=== PATIENT | male | born 1960 | race Caucasian/White ===

== ENCOUNTER 2017-04-09 09:42 | Observation (INO) | payer MEDICAID ==
[2017-03-29 08:36] VITALS: BP 143/85
[~2017-04-09] VITALS: Ht 182.9 cm; Wt 84.4 kg
[~2017-04-09 09:42] MED LIST: HYDR-3241 PO; LISI40TA PO; LORA2TAB PO
[2017-04-09] MEDS ORDERED: LACTATED RINGERS 1,000 ML IV SCH ×2 (10:05→19:01)
[2017-04-09] MEDS ORDERED: LIDOCAINE 1%, 2ML SQ PRN (10:30)
[2017-04-09] MEDS ORDERED: BUPIVACAINE/PF-EPI 0.5% 1:200K ONE (12:28)
[2017-04-09] MEDS ORDERED: MIDAZOLAM 1 MG/ML, 2ML ONE (12:40)
[2017-04-09] MEDS ORDERED: FENTANYL PF 250 MCG/5ML ONE (12:40)
[2017-04-09] MEDS ORDERED: KETAMINE 10 MG/ML, 20ML ONE (12:40)
[2017-04-09] MEDS ORDERED: AMPICILLIN 2 GM ONE (12:46)
[2017-04-09] MEDS ORDERED: GENTAMICIN 80 MG/2 ML ONE (12:47)
[2017-04-09] MEDS ORDERED: DEXAMETHASONE 4 MG/ML, 1ML ONE (13:04)
[2017-04-09] MEDS ORDERED: EPHEDRINE 50 MG/ML, 1ML ONE (13:04)
[2017-04-09] MEDS ORDERED: ONDANSETRON 2MG/ML, 2ML ONE (13:04)
[2017-04-09] MEDS ORDERED: SUCCINYLCHOLINE 20 MG/ML, 10ML ONE (13:04)
[2017-04-09] MEDS ORDERED: PROPOFOL 10 MG/ML, 20ML ONE (13:04)
[2017-04-09] MEDS ORDERED: PROPOFOL 10 MG/ML, 50ML ONE (13:04)
[2017-04-09] MEDS ORDERED: FENTANYL PF 100 MCG/2ML ONE ×2 (14:01→17:08)
[2017-04-09] MEDS ORDERED: HYDROmorphone 1 MG/ML, 1ML ONE (14:01)
[2017-04-09] MEDS ORDERED: ACETAMINOPHEN 325 MG TABLET PO PRN (14:30)
[2017-04-09] MEDS ORDERED: PROMETHAZINE 25 MG/ML, 1ML IV PRN (14:30)
[2017-04-09] MEDS ORDERED: hydrALAzine 20 MG/ML, 1ML IV PRN (14:30)
[2017-04-09] MEDS ORDERED: ALBUTEROL/IPRATROPIUM 2.5MG/0.5MG, 3 ML NPPB PRN (14:30)
[2017-04-09] MEDS ORDERED: ONDANSETRON 2MG/ML, 2ML IVPush PRN ×2 (14:30→19:30)
[2017-04-09] MEDS ORDERED: MEPERIDINE/PF 25MG/0.5ML IVPush PRN (14:30)
[2017-04-09] MEDS ORDERED: MIDAZOLAM 1 MG/ML, 2ML IV PRN (14:30)
[2017-04-09] MEDS ORDERED: OXYcodone 5 MG/5 ML ORAL.SOL UDC PO PRN (14:30)
[2017-04-09] MEDS ORDERED: LABETALOL 5MG/ML, 20ML IV PRN (14:30)
[2017-04-09] MEDS: FENTANYL PF 100 MCG/2ML IV PRN ×2 (17:05→17:25)
[2017-04-09] MEDS ORDERED: OXYcodone 5 MG/5 ML ORAL.SOL UDC ONE (17:08)
[2017-04-09] MEDS ORDERED: ACETAMINOPHEN 650 MG/20.3 ML UDC ONE (17:08)
[2017-04-09] MEDS ORDERED: HYDROmorphone 2 MG/ML, 1ML ONE (17:08)
[2017-04-09] MEDS: HYDROmorphone 1 MG/ML, 1ML IV PRN ×5 (17:10→18:00)
[2017-04-09 19:00] VITALS: BP 129/83
[2017-04-09] MEDS: morphine SULFATE 10 MG/ML, 1ML IVPush PRN ×2 (20:20→23:15)
[2017-04-09] MEDS: OXYcodone IR 5MG TABLET PO PRN ×2 (21:39→23:15)
[2017-04-09] MEDS: AMPICILLIN 1 GM in SODIUM CHLORIDE 0.9% 50 ML IV SCH (21:40)
[2017-04-09] MEDS: ACETAMINOPHEN 500 MG TABLET PO PRN (23:15)
[2017-04-09] MEDS: LORazepam 1MG TABLET PO PRN (23:15)
[2017-04-09] MEDS: DOCUSATE 100 MG CAPSULE PO SCH (23:26)
[2017-04-09] MEDS: PROMETHAZINE 25 MG/ML, 1ML IM PRN (23:27)
[2017-04-09 23:56] VITALS: BP 147/88
[2017-04-10] MEDS: OXYcodone IR 5MG TABLET PO PRN ×5 (03:25→19:54)
[2017-04-10] MEDS: AMPICILLIN 1 GM in SODIUM CHLORIDE 0.9% 50 ML IV SCH ×2 (03:25→11:52)
[2017-04-10] MEDS: morphine SULFATE 10 MG/ML, 1ML IVPush PRN ×7 (03:26→22:57)
[2017-04-10 04:25] VITALS: BP 122/77
[2017-04-10] MEDS: ACETAMINOPHEN 500 MG TABLET PO PRN ×3 (05:14→19:54)
[2017-04-10] MEDS: LACTATED RINGERS 1,000 ML IV SCH ×2 (06:01→13:48)
[2017-04-10 06:19] LABS: BLOOD UREA NITROGEN 12 mg/dL (7-18)
[2017-04-10] MEDS: LISINOPRIL 20 MG TABLET PO SCH (08:04)
[2017-04-10] MEDS: DOCUSATE 100 MG CAPSULE PO SCH ×2 (08:04→19:55)
[2017-04-10 08:51] VITALS: BP 129/81
[2017-04-10 14:08] VITALS: BP 107/86
[2017-04-10] MEDS: AMOXICILLIN/CLAV 875-125MG TABLET PO SCH (19:54)
[2017-04-10] MEDS: LORazepam 1MG TABLET PO PRN (19:54)
[2017-04-10 20:06] VITALS: BP 144/81
[2017-04-11] MEDS: OXYcodone IR 5MG TABLET PO PRN ×4 (01:25→13:59)
[2017-04-11 01:32] VITALS: BP 116/71
[2017-04-11] MEDS: ACETAMINOPHEN 500 MG TABLET PO PRN ×2 (01:57→08:11)
[2017-04-11] MEDS: morphine SULFATE 10 MG/ML, 1ML IVPush PRN ×3 (01:57→09:02)
[2017-04-11] MEDS: LACTATED RINGERS 1,000 ML IV SCH ×2 (02:09→09:02)
[2017-04-11] MEDS: PROMETHAZINE 25 MG/ML, 1ML IM PRN (02:09)
[2017-04-11 08:02] VITALS: BP 145/76
[2017-04-11] MEDS: AMOXICILLIN/CLAV 875-125MG TABLET PO SCH (08:11)
[2017-04-11] MEDS: LISINOPRIL 20 MG TABLET PO SCH (08:12)
[2017-04-11] MEDS: LORazepam 1MG TABLET PO PRN (08:18)
[2017-04-11] MEDS: DOCUSATE 100 MG CAPSULE PO SCH (09:02)
[2017-04-11 13:42] VITALS: BP 145/76
[2017-04-11] MEDS ORDERED: NITR100C56 PO (14:18)
[2017-04-11] MEDS ORDERED: OXYC-302 PO (14:21)
[2017-04-11] MEDS ORDERED: OXYB5TAB33 PO (14:22)
[2017-04-11] MEDS ORDERED: DOCU-30 PO (14:25)
== END 2017-04-11 15:05 | disposition home or self-care (01) ==
LOC: OUT 09:42 → 4NOR 18:42 → OUT 19:13 → DCLOUNGE 04-11 14:04
PROVIDERS: ADMIT Urology; ATTEND Urology
DX: N35.9 Urethral stricture, unspecified (principal); R39.14 Feeling of incomplete bladder emptying; I10 Essential (primary) hypertension; K21.9 Gastro-esophageal reflux disease without esophagitis; F32.9 Major depressive disorder, single episode, unspecified; F41.9 Anxiety disorder, unspecified
CPT/HCPCS: 36415; 50700; 51705; 52000; 80048; 85025; 88305; 96365; 96372; 96375; 96376; C1769; G0378; J0290; J0330; J1100; J1170; J1580; J2250; J2270; J2405; J2550; J2704; J3010; J3490; J7120; 96374